=== PATIENT | male | born 2000 | race Caucasian/White ===

== ENCOUNTER 2020-07-12 19:10 | Emergency (ER) | payer SELFPAY ==
[2020-07-12 19:20] VITALS: BP 132/74; PULSE 70; RESP 18; TEMP 37.2; O2SAT 100
--- NOTE | 2020-07-12 19:28 | ED.UPPEXIN ---
HPI - Extremity Injury (Upper) General Chief Complaint: Extremity Injury, Upper Stated Complaint: pain shoulder and down back Time Seen by Provider: 07/12/20 19:28 Source: patient and RN notes reviewed History of Present Illness HPI narrative: Patient is a 20-year-old male who presents the urgent care with complaints of left posterior shoulder pain that radiates down the back. Patient states that he was punching a 100 pound punching bag 2 days ago and believes he pulled a muscle . Patient states that he took 200 mg of ibuprofen this morning which did not seem to help. 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 Patient states he is unable to lift the left shoulder due to the pain. No other acute complaints. No acute distress noted. Patient read the plan of care. Related Data Allergies Allergy/AdvReac Type Severity Reaction Status Date / Time No Known Allergies Allergy Verified 07/12/20 19:32 Review of Systems Review of Systems: Narrative: CONSTITUTIONAL: Denies fever, chills, or sweats. EYES: Denies visual changes, redness, or discharge. ENT: Denies rhinorrhea, congestion, sore throat, or otalgia. CARDIOVASCULAR: Denies chest pain, palpitations, or edema. RESPIRATORY: Denies cough or dyspnea. GASTROINTESTINAL: Denies abdominal pain, nausea, vomiting, or diarrhea. GENITOURINARY: Denies dysuria or hematuria. SKIN: Denies rash or itching. MUSCULOSKELETAL: Reports of left shoulder pain radiating down the back NEUROLOGIC: Denies headache, numbness, or weakness. All other systems reviewed are negative, except as documented in HPI. PMFSH Comments At the time of my signature, I reviewed and agree with the nursing past medical, surgical, social, and family history. There is no relevant family history pertinent to the patient complaint. Exam Narrative: Exam Narrative: GENERAL: This is a well-nourished, well-developed patient, in no apparent distress. HEAD: normocephalic, atraumatic. EYES: PERRL. Sclera clear/white. Vision is grossly intact. EARS: External ears normal NOSE: External nose normal with no obvious nasal discharge, nares without redness, no rhinorrhea. THROAT: Mucous membranes moist NECK: Neck supple; mild left cervical tenderness with range of motion within normal limits SKIN: warm, intact with no suspicious lesions or rash, good texture and turgor. NEURO: awake, alert, and oriented to person, place and time. There were no obvious focal neurologic abnormalities. EXTREMITIES: No obvious dislocation or deformity noted to the left shoulder. Moderate posterior left shoulder tenderness extending to the right scapular region. Pain exacerbated with range of motion activities. Positive strong left radial pulse with capillary refill less than 2 seconds. Course Vital Signs Vital signs: Vital Signs Temperature 99 F 07/12/20 19:20 Pulse Rate 70 07/12/20 19:20 Respiratory Rate 18 07/12/20 19:20 Blood Pressure 132/74 07/12/20 19:20 Pulse Oximetry 100 07/12/20 19:20 Temperature 99 F 07/12/20 19:20 Pulse Rate 70 07/12/20 19:20 Respiratory Rate 18 07/12/20 19:20 Blood Pressure 132/74 07/12/20 19:20 Pulse Oximetry 100 07/12/20 19:20 Reviewed MDM - Extremity Injury (Upper) MDM Narrative Medical decision making narrative: Advised the patient to complete steroid regimen as prescribed. Steroid will help reduce muscular inflammation and in turn help with the pain. Use ice or heat in 20-minute intervals as needed for comfort. Do not sleep with an ice pack or heating pad. May obtain [id number] Voltaren cream to apply to the posterior shoulder. Use Tylenol as needed for pain. Do not use ibuprofen with Voltaren cream. Patient will need to follow-up with his PCP if pain does not subside within 5 to 7 days. May need further imaging to assess any ligament injury. Follow-up with your PCP within 2 to 5 days or for worsen
== END 2020-07-12 19:40 | disposition home or self-care (01) ==
PROVIDERS: Emergency Provider Nurse Practitioner Family
DX: S43.402A Unspecified sprain of left shoulder joint, initial encounter (principal); X50.3XXA Overexertion from repetitive movements, initial encounter
CPT/HCPCS: 99213; G0463

== ENCOUNTER 2025-10-10 09:54 | Emergency (ER) | payer OTHER, SELFPAY ==
[2025-10-10 10:00] VITALS: BP 130/86; PULSE 54; RESP 20; TEMP 36.2; O2SAT 100
--- NOTE | 2025-10-10 10:14 | ED.DENTAL ---
HPI - Dental/Oral General Chief complaint: Dental/Oral Stated complaint: Tooth Pain Time Seen by Provider: 10/10/25 10:14 Source: patient, RN notes reviewed and old records reviewed Mode of arrival: ambulatory Limitations: no limitations History of Present Illness HPI Narrative: 25 year old male presents to [facility] care with complaints of dental pain to right upper molar #3 where he states a piece of tooth broke off, he reports several weeks ago, states dental pain for 2 weeks with increased intensity past few days. He has been taking Ibuprofen and also Tylenol without pain relief. Patient reports that he has pain around tooth #3 and also feels like he has a tooth in the most posterior right upper that is trying to come in sideways. Patient reports that he does not have a dentist. Patient reports that pain is severe he has applied ice to his face also with no swelling of face noted.. MD Complaint: tooth pain Location: Tooth # (3) Onset (ago): week(s) (2weeks) Severity scale (1-10): 10 Relieving factors: nothing Treatment prior to arrival: oral analgesic and other (ice to right side of face) Related Data Allergies Allergy/AdvReac Type Severity Reaction Status Date / Time No Known Allergies Allergy Verified 07/12/20 19:32 Review of Systems Review of Systems: CONSTITUTIONAL: Denies fever, chills, or sweats. ENT: Denies rhinorrhea, congestion, sore throat, or otalgia. Reports dental pain to right upper molar #3 stating tooth broke off and pain radiates to right ear. no facial swelling noted CARDIOVASCULAR: Denies chest pain, palpitations, or edema. RESPIRATORY: Denies cough or dyspnea. SKIN: Denies rash or itching. MUSCULOSKELETAL: Denies myalgia. NEUROLOGIC: Denies headache All systems reviewed & are unremarkable except as noted in HPI and below PMFSH Past Medical History Medical History Injury of right middle finger tip is missing electrocuted at 6 months [place]-Schlatter's disease Manic depressive disorder Anxiety and depression ADHD (attention deficit hyperactivity disorder) Surgical History Surgical History Hx of appendectomy Hx of tonsillectomy Social History Social History Smoking status: Current every day smoker Tobacco type: cigarettes Alcohol intake: unknown Substance use: unknown Living arrangements: with family Gender identity (if verbalized by the patient): Male Comments At time of signature, agree with nursing past medical, surgical, social and family history. There is no relevant family history pertinent to the presenting complaint Exam Narrative: GENERAL: Well-appearing, well-nourished, and in some acute distress. HEAD: Normocephalic, atraumatic. EYES: PERRLA and EOMI. ENT: Nares clear, no rhinorrhea or epistaxis. Mucous membranes moist.TM's normal with good light refles, throat pink with no swelling , Broken teeth, caries, pain to #3 tooth with tooth fracture noted and also reports pain radiates to right ear. Some redness of gum around tooth with no obvious abscess.Patient also voices that it feels like he has a tooth in the most posterior right upper gum that is trying to come in sideway, some swelling of area noted with no tooth erupted.No trismus or any Leo angina noted. NECK: Supple.no lymphadenopathy CHEST: Clear to auscultation. No respiratory distress. SAO2 100% on room air HEART: Regular rate and rhythm. No murmur heard. Normal peripheral pulses. SKIN: Warm, dry, no rash. NEURO: No focal deficits. Alert and oriented x3.anxious Course Course Emergency Course: Patient is aware of diagnosis, understands and agrees to treatment plan. Anticipatory guidance given. Patient agrees to follow-up as directed and is aware of reasons to seek care at the emergency department. Portions of this record may have been created with voice recognition software Level of Care: Express Care Visit Vital Signs Vital signs: Vital Signs Temperature 36.2 C L 10/10/25 10:00 Pulse Rate 54 L 10/10/25 10:00 Respiratory Rate 20 10/10/25 10:00 Blood Pressure 130/86 10/10/25 10:00 Pulse Oximetry 100 10/10/25 10:00 Oxygen Delivery Room Air 10/10/25 10:00 Temperature 36.2 C L 10/10/25 10:00 Pulse Rate 54 L 10/10/25 10:00 Respiratory Rate 20 10/10/25 10:00 Blood Pressure 130/86 10/10/25 10:00 Pulse Oximetry 100 10/10/25 10:00 Oxygen Delivery Room Air 10/10/25 10:00 Reviewed MDM - Dental/Oral MDM Narrative Medical decision making narrative: Patients pain and complaint coupled with physical findings are consistent with dentalgia. There are no focal signs of space occupying lesions that are compromising to the airway; no dysphagia, odynophagia, dysphonia, or dyspnea. No uvular deviation or soft palate edema. Patient is non-toxic appearing. The floor of the mouth is soft with no signs of Leo's Angina; no induration below mandible, no neck pain.? Patient is without trismus or drooling and able to swallow secretions.? Patient is felt appropriate for discharge home with dental follow up. Differential Diagnosis Differential diagnosis: Likely dental caries, toothache and fracture of tooth Medical Records Attestation: I reviewed the patient's medical records. Critical Care Time Critical Care Time Critical Care Time: No Discharge Plan Discharge Clinical Impression: Toothache, Dental caries Fracture of tooth Qualifiers: Encounter type: initial encounter Fracture type: open Qualified Code(s): S02.5XXB - Fracture of tooth (traumatic), initial encounter for open fracture Patient Disposition: Home Condition: Stable Instructions: Antibiotic Form, Toothache (ED) Additional Instructions: Avoid temperature extremes May apply heat or ice to the face Gentle brushing and flossing Antibiotic as directed Tylenol for lesser pain Use ibuprofen regularly Use the medication as provided for severe pain--caution each tablet contains 325 mg of Tylenol--the maximum dose of Tylenol is 4000 mg in 24 hours. This medication may cause constipation consider starting a laxative at this time Follow-up with the dentist as soon as possible--see the list provided If your symptoms persist, change or worsen significantly before you can contact your personal physician then please, without delay, go to the emergency department for further evaluation. Follow-up with PCP in 7-10 days or sooner if needed Follow up with PCP soon in regards to your blood pressure which is elevated above threshold for referral. Blood pressure above 120/80 may indicate pre-hypertension.130/86 Patient Language: Tristanian Prescriptions: New penicillin V potassium 500 mg tablet 500 mg PO Q12H 10 Days Qty: 20 0RF ibuprofen 600 mg tablet 600 mg PO QID PRN (Reason: pain) Qty: 30 0RF acetaminophen-codeine 300-30 mg tablet 1 tablet PO Q6H PRN (Reason: pain) Qty: 10 0RF Follow-up/Referrals: PHYSICIAN,DIRECTOR OF RETAIL MERCHANDISING [Primary Care Provider, Internal Medicine] Stand Alone Forms: Work/School Release IP Time of Disposition: 10:32 Quality Amy Coma Scale Eyes: Open Verbal: Oriented and Alert Motor: Follows Commands Amy Coma Total Score: 15
--- OUTSIDE RECORDS SUMMARY | 2025-10-10 10:57 | XMS_ITS | Clinical Summary ---
Author Organization [facility] Address [address] [place] [address] Phone Care Team Providers Care Bicycle Messenger Name Role Phone Provider, None Primary Care Provider Unavailabl e Allergies No known active allergies Medications ibuprofen (MOTRIN) 600 MG Tablet Take 1 Tab by mouth every 8 hours as needed for Moderate pain (4-6) or more severe pain if patient requests. 60 Tab 04/02/2018 Active diazePAM (VALIUM) 5 MG Tablet Take 1 Tab by mouth nightly as needed for Muscle spasms. 5 Tab 04/02/2018 Active ibuprofen (MOTRIN) 600 MG Tablet Take 1 Tab by mouth every 8 hours. 30 Tab 11/24/2018 Active HYDROcodone-ricarda taminophen (NORCO) 5-325 MG Tablet Take 1 Tablet by mouth every 4 hours as needed for Moderate or more severe pain. 20 Tablet 04/02/2021 Active diazePAM (VALIUM) 5 MG Tablet Take 1 Tablet by mouth every 8 hours as needed for Muscle spasms. 15 Tablet 04/02/2021 Active methylPREDNISol one (MEDROL DOSPACK) 4 MG Tablet Therapy Pack See product package insert for dosing schedule 21 Tablet 04/02/2021 Active Social History Tobacco Use Types Packs/Day Years Used Date Smoking Tobacco: Every Day Cigarettes Smokeless Tobacco: Never Alcohol Use Standard Drinks/Week Comments Yes 0 (1 standard drink = 0.6 oz pur e alcohol) socially Sex and Gender Information Value Date Recorded Sex Assigned at Not on file Legal Sex Male 11:53 PM CDT Gender Identity Not on file Sexual Orientation Not on file Last Filed Vital Signs Vital Sign Reading Time Taken Comments Blood Pressure 116/57 11/16/2024 4:22 PM [employer] Pulse 83 11/16/2024 4:22 PM [employer] Temperature 37.7 C (99.9 F) 11/16/2024 2:38 PM [employer] Respiratory Rate 18 11/16/2024 4:22 PM [employer] Oxygen Saturation 100% 11/16/2024 4:22 PM [employer] Inhaled Oxygen Concentration - - Weight 61.2 kg (135 lb) 11/16/2024 2:38 PM [employer] Height 170.2 cm (5' 7) 11/16/2024 2:38 PM [employer] Body Mass Index 21.14 11/16/2024 2:38 PM [employer] Plan of Treatment Health Maintenance Due Date Last Done Comments Hepatitis C Virus (HCV) Screening 2000 Pneumococcal Immunization Combined (1 of 2 - PCV) 01/22/2019 08/10/2001, 01/21/2001, 2000 Influenza Immunization (#1) 2025 08/28/2016, 1 12/21/2014 SARS-COV-2 Immunization ( season) 2025 Respiratory Syncytial Virus (RSV) Immunization (Adult) (1 - 1-dose 75+ series) 01/22/2075 Hepatitis B Immunization Completed 001, 2000, 2000, Additional history exists Varicella Immunization Completed 05/02/2005, 2000 DTaP/Tdap/Td Immunization Discontinued 2011, 11/19/2001, 01/21/2001, Additional history exists Human Papillomavirus (HPV) Immunization Completed 06/26/2012, 10/17/2011, 08/16/2011 TdaP Immunization Completed 06/26/2012 Meningococcal Immunization (ACWY) Completed 02/06/2016, 06/26/2012 Rotavirus Immunization Aged Out No lo nger eligible based on patient's age to complete this topic Insurance MEDICAID [employer] Care Teams Bicycle Messenger Relationship Specialty Start Date End Date Provider, None [place] PCP - General 09/14/23
--- OUTSIDE RECORDS SUMMARY | 2025-10-10 10:57 | XMS_ITS | Clinical Summary ---
Author Organization [facility] [place] [facility] Address [address] [place] [address] Care Team Providers Care Unisaw Operator Name Role Phone No, Physician Primary Care Provider Allergies No known active allergies Medications No known medications Active Problems Problem Noted Date Diagnosed Date Low back sprain, subsequent encounter 04/20/2021 Assessment & Plan (05/03/2021 3:55 PM CDT): Acute back injury, with sciatica Will give trial of prednisone to reduce deletion, Flexeril for muscle spasms Evaluate response to therapy at follow-up visit Patient to get x-ray imaging of lumbar and thoracic Assessment & Plan (04/20/2021 9:45 AM CDT): Patient is doing better, reports decreased pain at baseline Is able to lift objects like couch is, though continues to have some pain afterwards Encouraged patient to continue to use [id number] analgesics, pharmacotherapy such as heat pads, and relative rest Patient to return to work on light duty with back brace Will reassess in 1 week of light duty to determine if patient is able to advance work duties Immunizations Immunization Administration Dates Next Due Influenza, Unspecified 04/20/2021(Deferr ed: Patient Refused),08/10/2020(Deferred: Patient Refused) Surgical History Surgery Date Site/Laterality Comments APPENDECTOMY 11/10/2010 - 11/09/2011 SKIN GRAFT 11/10/1999 - 2000 TONSILLECTOMY Medical History Medical History Date Comments Appendicitis 2010 Family History Medical History Relation Name Comments No Known Problems Brother Suicide Completion Father No Known Problems Half-Sister 1 No Known Problems Half-Sister 2 No Known Problems Half-Sister 3 No Known Problems Mother Relation Name Status Comments Brother Alive Father (Age 31) Half-Sister 1 Alive Half-Sister 2 Alive Half-Sister 3 Alive Mother Alive Social History Tobacco Use Types Packs/Day Years Used Date Smoking Tobacco: Former Cigarettes Q uit: 04/17/2021 Smokeless Tobacco: Never Tobacco Cessation:Ready to Q uit: Yes; Counseling Given: Yes Comments:3-4 per day PHQ-2 Answer Date Recorded PHQ-2 Total Score (If total score is 3 or more points, staff should administer the PHQ-9) 0 04/20/2021 Personal Safety Answer Date Recorded Have you ever been in or are you currently in a harmful physical or emotional relationship or is someone making you feel afraid or unsafe? Denies 08/29/2024 Sex and Gender Information Value Date Recorded Sex Assigned at Not on file Legal Sex Male 11:36 AM [employer]UMINUM [employer]ING INST[employer]ER Gender Identity Not on file Sexual Orientation Not on file Last Filed Vital Signs Vital Sign Reading Time Taken Comments Blood Pressure 117/84 08/30/2024 1:00 AM CDT Pulse 61 08/30/2024 1:00 AM CDT Temperature 36.9 C (98.5 F) 08/30/2024 1:00 AM CDT Respiratory Rate 14 08/30/2024 1:00 AM CDT Oxygen Saturation 99% 08/30/2024 1:00 AM CDT Inhaled Oxygen Concentration - - Weight 65.8 kg (145 lb) 08/29/2024 2:19 PM CDT Height 170.2 cm (5' 7) 08/29/2024 2:19 PM CDT Body Mass Index 22.71 08/29/2024 2:19 PM CDT Plan of Treatment Health Maintenance Due Date Last Done Comments Hepatitis C Screening 2000 Regular Well Visit/Exam 18-64 01/22/2018 Depression Screening 04/20/2022 04/20/2021, 04/06/20 21 DTaP/Tdap/Td Vaccine (6 - Td or Tdap) 06/26/2022 06/26/2012, 11/19/2001, 01/21/2001, Additional history exists Influenza Vaccine (#1) 2025 08/28/2016, 2014 Hepatitis B Screening Completed 01/21/2001 , 2000, 2000, Additional history exists Pneumococcal vaccine <65 Completed 001, 01/21/2001, 2000 Varicella Vaccines Completed 05/02/2005, 02/26/2001 HPV Vaccines Completed 06/26/2012, 12/0 06/2011, 08/16/2011 Insurance CHOICE [place] PPO [place] CHOICE PRF PPO [place] [facility] Care Teams Unisaw Operator Relationship Specialty Start Date End Date No, Physician PCP - General 02/04/22
== END 2025-10-10 10:37 | disposition home or self-care (01) ==
PROVIDERS: Emergency Provider Registered Nurse
DX: K02.9 Dental caries, unspecified (principal); K04.7 Periapical abscess without sinus; F17.210 Nicotine dependence, cigarettes, uncomplicated
CPT/HCPCS: 99213; G0463